=== PATIENT | female | born 1975 | race Caucasian/White ===

== ENCOUNTER 2024-05-06 08:47 | Day surgery (SDC) | payer OTHER ==
[2024-05-03 13:33] VITALS: BMI 23.5
[2024-05-06 09:45] VITALS: RESP 16
[2024-05-06 11:15] VITALS: TEMP 97.5
[2024-05-06 11:47] VITALS: BP 96/63; PULSE 71
== END 2024-05-06 11:39 | disposition home or self-care (01) ==
LOC: FASU-ENDO 08:47
PROVIDERS: ATTEND Internal Medicine Gastroenterology
PROC: 0DB98ZX Excision of Duodenum, Via Natural or Artificial Opening Endoscopic, Diagnostic (ICD-10-PCS; 2024-05-06)
PROC: 0DB68ZZ Excision of Stomach, Via Natural or Artificial Opening Endoscopic (ICD-10-PCS; 2024-05-06)
PROC: 0DJD8ZZ Inspection of Lower Intestinal Tract, Via Natural or Artificial Opening Endoscopic (ICD-10-PCS; principal; 2024-05-06 10:32)
DX: Z12.11 Encounter for screening for malignant neoplasm of colon (principal); K29.50 Unspecified chronic gastritis without bleeding
CPT/HCPCS: 81025; 88305-TC; 88342-TC